=== PATIENT | female | born 1935 | race Caucasian/White ===

== ENCOUNTER 2016-04-03 10:20 | Inpatient (IN) | payer OTHER ==
[~2016-04-03] VITALS: Ht 152.4 cm; Wt 80.7 kg
[~2016-04-03 10:20] MED LIST: ALLEGRA ALLERGY60 MG PO; BISOPROLOL-HCT1 EAC2 PO; CALAN SR,COVER240 MG PO; CIPRO500 MG PO; Claritin,Alavart PO; Coumadin,Jantoven PO; FLAGYL500 MG PO; Fosamax PO; LASIX20 MG PO; LEVOTHYROXINE100 MCG PO; Levothroid,Synthroid PO; NABUMETONE750 MG PO; OSTEO BI-FLEX1 EAC1 PO; Osteo-Biflex,Flex-A- PO; PROBIOTIC PO; VENTOLIN HFA18 GM IH; Vicodin,Norco 5/325 PO; Vitamin D PO; ZOCOR20 MG PO; Ziac 5/6.25 PO; Zocor PO
[2016-05-08] MEDS ORDERED: ALLEGRA ALLERG180 MG PO (10:25)
[2016-05-12 06:24] VITALS: BP 177/77
[2016-05-12 15:50] VITALS: BP 123/58
[2016-05-12 16:45] VITALS: BP 179/79
[2016-05-12 23:51] VITALS: BP 155/69
[2016-05-13] VITALS (8 sets, daily range): BP systolic 110–133; BP diastolic 56–64
[2016-05-13 07:41] LABS: EOSINOPHIL (%) 0 % (0-5); HEMATOCRIT 37.3 % (36.0-46.0); IMMATURE GRANULOCYTE (%) 0.2 % (0.0-0.7); LYMPHOCYTE COUNT 0.7 K/uL (1.0-2.8); MCH 30.3 PG (29.0-34.0); MCHC 35.1 G/DL (30.0-36.0); MCV 86.3 FL (83-99); MONOCYTE (%) 9.9 % (3-12); MONOCYTE COUNT 1.1 K/uL (0-0.8); PLATELET COUNT 133 K/uL (156-360); RBC DIS.WIDTH-CV 14.1 % (11.8-14.6); RBC DIS.WIDTH-SD 43.8 % (39-53); RED BLOOD COUNT 4.32 M/uL (3.80-5.20)
[2016-05-13 07:51] LABS: WHITE BLOOD COUNT 10.8 K/uL (4.1-10.2)
[2016-05-13 08:07] LABS: ALKALINE PHOSPHATASE 52 IU/L (3-129); ANION GAP 6 MEQ/L (2-14); CHLORIDE 103 MEQ/L (99-109); GFR ESTIMATE (CALCULATED) > 59 mL/min/; GLUCOSE 151 mg/dL (70-99); MAGNESIUM 1.7 mg/dl (1.3-2.7); POTASSIUM 4.1 MEQ/L (3.7-5.4); SAMPLE HEMOLYSIS CHECK 0; SAMPLE ICTERIC CHECK 0; SAMPLE LIPEMIA CHECK 0; SODIUM 135 MEQ/L (136-147); TOTAL BILIRUBIN 0.5 MG/DL (0.0-1.0); UREA NITROGEN (BUN) 8 mg/dL (9-23)
[2016-05-14 03:20] VITALS: BP 125/80
[2016-05-14 07:45] VITALS: BP 122/80
[2016-05-14 07:46] LABS: ALKALINE PHOSPHATASE 44 IU/L (3-129); ANION GAP 8 MEQ/L (2-14); CHLORIDE 108 MEQ/L (99-109); GFR ESTIMATE (CALCULATED) > 59 mL/min/; MAGNESIUM 1.9 mg/dl (1.3-2.7); POTASSIUM 3.7 MEQ/L (3.7-5.4); SAMPLE HEMOLYSIS CHECK 0; SAMPLE ICTERIC CHECK 0; SAMPLE LIPEMIA CHECK 0; TOTAL BILIRUBIN 0.6 MG/DL (0.0-1.0); UREA NITROGEN (BUN) 8 mg/dL (9-23)
[2016-05-14 07:47] LABS: EOSINOPHIL (%) 1.7 % (0-5); EOSINOPHIL COUNT 0.1 K/uL (0-0.3); GLUCOSE 96 mg/dL (70-99); HEMATOCRIT 37.1 % (36.0-46.0); IMMATURE GRANULOCYTE (%) 0.2 % (0.0-0.7); LYMPHOCYTE COUNT 1.1 K/uL (1.0-2.8); MCH 28.7 PG (29.0-34.0); MCHC 32.3 G/DL (30.0-36.0); MCV 88.8 FL (83-99); MEAN PLAT.VOLUME 12.3 uM^3 (9.5-12.4); MONOCYTE (%) 13.9 % (3-12); MONOCYTE COUNT 0.9 K/uL (0-0.8); NEUTROPHIL (%) 66.7 % (45-76); NEUTROPHIL COUNT 4.3 K/uL (1.8-6.4); PLATELET COUNT 116 K/uL (156-360); RBC DIS.WIDTH-CV 14.8 % (11.8-14.6); RBC DIS.WIDTH-SD 47.7 % (39-53); RED BLOOD COUNT 4.18 M/uL (3.80-5.20); SODIUM 142 MEQ/L (136-147)
[2016-05-14 07:48] LABS: WHITE BLOOD COUNT 6.5 K/uL (4.1-10.2)
[2016-05-14] MEDS ORDERED: TRAMADOL HCL50 MG PO (09:08)
[2016-05-14 11:01] VITALS: BP 129/69
[2016-05-14 15:19] VITALS: BP 137/65
[2016-05-14 23:30] VITALS: BP 119/58
[2016-05-15 07:51] LABS: EOSINOPHIL (%) 2.5 % (0-5); EOSINOPHIL COUNT 0.2 K/uL (0-0.3); HEMATOCRIT 39.8 % (36.0-46.0); IMMATURE GRANULOCYTE (%) 0.2 % (0.0-0.7); LYMPHOCYTE COUNT 1.3 K/uL (1.0-2.8); MCH 28.9 PG (29.0-34.0); MCHC 32.9 G/DL (30.0-36.0); MCV 87.9 FL (83-99); MONOCYTE (%) 10.3 % (3-12); MONOCYTE COUNT 0.6 K/uL (0-0.8); NEUTROPHIL (%) 65.6 % (45-76); NEUTROPHIL COUNT 3.9 K/uL (1.8-6.4); PLATELET COUNT 132 K/uL (156-360); RBC DIS.WIDTH-CV 14.6 % (11.8-14.6); RBC DIS.WIDTH-SD 47.1 % (39-53); RED BLOOD COUNT 4.53 M/uL (3.80-5.20); WHITE BLOOD COUNT 5.9 K/uL (4.1-10.2)
[2016-05-15 07:54] VITALS: BP 132/82
[2016-05-15 08:12] LABS: ANION GAP 8 MEQ/L (2-14); CHLORIDE 106 MEQ/L (99-109); GFR ESTIMATE (CALCULATED) > 59 mL/min/; GLUCOSE 91 mg/dL (70-99); MAGNESIUM 2.1 mg/dl (1.3-2.7); POTASSIUM 3.9 MEQ/L (3.7-5.4); SAMPLE HEMOLYSIS CHECK 0; SAMPLE ICTERIC CHECK 0; SAMPLE LIPEMIA CHECK 0; SODIUM 143 MEQ/L (136-147); UREA NITROGEN (BUN) 9 mg/dL (9-23)
[2016-05-15] MEDS ORDERED: BACTRIM,SEPT1 TABLET PO (09:08)
== END 2016-05-15 10:56 | disposition home or self-care (01) | DRG 331 ==
LOC: SDC 10:20 → 2SOUTH 05-12 05:37 → 2EAST 05-12 05:37 → SDC 05-12 08:11 → EDSTATUS 05-12 10:32 → 2SOUTH 05-12 10:33 → SDC 05-12 13:06 → 2EAST 05-12 17:00
PROVIDERS: Surgery
DX: K57.32 Diverticulitis of large intestine without perforation or abscess without bleeding (principal); K42.9 Umbilical hernia without obstruction or gangrene
CPT/HCPCS: 80048; 80053; 83735; 84100; 85025; 88302; 88307; 94799; 99202; J0330; J1100; J1650; J2250; J2270; J2405; J2710; J2765; J3010; J7050; S0030

== ENCOUNTER 2016-12-31 09:06 | Emergency (ER) | payer OTHER ==
[~2016-12-31] VITALS: Ht 154.9 cm; Wt 86.5 kg
[~2016-12-31 09:06] MED LIST changes: +ALLEGRA ALLERG180 MG PO; +BACTRIM,SEPT1 TABLET PO; +TRAMADOL HCL50 MG PO
[2016-12-31] MEDS ORDERED: TYLENOL WITH C1 EACH PO (13:52)
[2016-12-31 14:01] VITALS: BP 144/82
== END 2016-12-31 14:02 | disposition home or self-care (01) ==
LOC: EME 09:06
DX: S76.011A Strain of muscle, fascia and tendon of right hip, initial encounter (principal); W19.XXXA Unspecified fall, initial encounter; I10 Essential (primary) hypertension; E78.5 Hyperlipidemia, unspecified; Z96.653 Presence of artificial knee joint, bilateral
CPT/HCPCS: 73502; 73721; 99281; 99283